=== PATIENT | male | born 1955 | race Caucasian/White ===

== ENCOUNTER 2016-10-25 06:26 | Emergency (ER) | payer OTHER ==
[2016-10-25] MEDS ORDERED: IPRATROPIUM/ALBUTEROL (0.5MG/3MG) NEB INH ONE (06:49)
[2016-10-25] MEDS ORDERED: METHYLPREDNISOLONE PF 125MG/VIAL IVP ONE (07:09)
[2016-10-25] MEDS ORDERED: ALBUTEROL SULFATE (0.083%) 2.5 MG/3 ML NEB INH ONE (07:12)
[2016-10-25] MEDS ORDERED: 0.9 % SODIUM CHLORIDE 1000ML 1,000 ML IV ONE (07:15)
--- NOTE | 2016-10-25 07:22 | Emergency Department Record ---
History of Present Illness - General Chief Complaint: Shortness of breath Stated Complaint: COUGH Time Seen by Provider: 10/25/16 07:11 Mode of Arrival: Ambulatory - History of Present Illness Initial Comments: wheezing and cough for the last week and recently seen Dr. Reynoso and romel dhillon and he has been using his rescue inhaler and it is only helping for a short time. Dry cough and slight sore throat. History of allergic asthma and he stopped smoking in 1993. No chest pain and no abd pain and no leg pain. Onset/Timin -: Week(s) Improves With: Bronchodilators, Medication, Upright position Worsens With: Inspiration, Lying flat Known History Of: Asthma Context: Other Associated Symptoms: Denies other symptoms Treatments Prior to Arrival: Other Treatment Prior to Arrival Comment:: stiloto - Related Data Home Oxygen Therapy: No Home Medications Medication Instructions Recorded Confirmed Last Taken Albuterol Sulfate [Ventolin Hfa] 1 - 2 puff IH .EVERY 4-6 HOURS PRN 10/25/1610/24/16 Ezetimibe [Zetia] 10 mg PO ASDIR 10/25/16 10/25/16 10/24/16 Fenofibrate,Micronized 108 mg PO DAILY 10/25/16 10/25/16 10/24/16 [Fenofibrate] Montelukast Sodium [Montelukast 10 mg PO QHS 10/25/16 10/25/16 10/24/16 Sodium] Previous Rx's Medication Instructions Recorded Azithromycin [Zithromax] 250 mg PO DAILY #6 tablet 10/25/16 Prednisone [Prednisone 10Mg] 10 mg PO ASDIR #30 tab 10/25/16 Allergies Allergy/AdvReac Type Severity Reaction Status Date / Time Penicillins AdvReac HYPERSENSIT Verified 10/25/16 06:31 IVITY Travel Screening - Travel/Exposure Within Last 30 Days Have you traveled within the last 30 days?: No - Travel Symptoms Symptom Screening: None Review of Systems Reviewed: No additional complaints except as noted below Constitutional: Reports: As per HPI. Denies: Chills, Fever, Malaise, Night sweats, Weakness, Weight change Eyes: Reports: As per HPI. Denies: Eye discharge, Eye pain, Photophobia, Vision change ENT: Reports: As per HPI. Denies: Congestion, Dental pain, Ear pain, Epistaxis , Hearing loss, Throat pain Respiratory: Reports: As per HPI, Cough, Dyspnea, Wheezes. Denies: Hemoptysis, Stridor Cardiovascular: Reports: As per HPI. Denies: Arrhythmia, Chest pain, Dyspnea on exertion, Edema, Murmurs, Orthopnea, Palpitations, Paroxysmal nocturnal dyspnea, Rheumatic Fever, Syncope Endocrine: Reports: As per HPI. Denies: Fatigue, Heat or cold intolerance, Polydipsia, Polyuria Gastrointestinal: Reports: As per HPI. Denies: Abdominal pain, Constipation, Diarrhea, Hematemesis, Hematochezia, Melena, Nausea, Vomiting Genitourinary: Reports: As per HPI. Denies: Dysuria, Frequency, Hematuria, Incontinence, Retention, Testicular pain, Testicular mass, Urgency Musculoskeletal: Reports: As per HPI. Denies: Arthralgia, Back pain, Gout, Joint swelling, Myalgia, Neck pain Skin: Reports: As per HPI. Denies: Bruising, Change in color, Change in hair/ nails, Lesions, Pruritus, Rash Neurological: Reports: As per HPI. Denies: Abnormal gait, Confusion, Headache, Numbness, Paresthesias, Seizure, Tingling, Tremors, Vertigo, Weakness Psychiatric: Reports: As per HPI. Denies: Anxiety, Auditory hallucinations, Depression, Homicidal thoughts, Suicidal thoughts, Visual hallucinations Hematological/Lymphatic: Reports: As per HPI. Denies: Anemia, Blood Clots, Easy bleeding, Easy bruising, Swollen glands Past Medical History - SOCIAL HISTORY Smoking Status: Former smoker Alcohol Use: None Drug Use: None - RESPIRATORY Hx Respiratory Disorders: Yes Hx Asthma: Yes - CARDIOVASCULAR Hx Cardio Disorders: No - NEURO Hx Neuro Disorders: No - GI Hx GI Disorders: Yes Hx GI Bleed: Yes ("weak lining" in stomach as a child) - Hx Genitourinary Disorders: No - ENDOCRINE Hx Endocrine Disorders: No - MUSCULOSKELETAL Hx Musculoskeletal Disorders: No - PSYCH Hx Psych Problems: No - HEMATOLOGY/ONCOLOGY Hx Hematology/Oncology Disorders: No Family Medical History Any Significant Family History?: Yes Hx Cancer: Mother Hx Heart Disease: Father Hx Resp Disorders: Brother/Sister, Grandparents *Resp Comment: sister-asthma, PGF-emphysema Physical Exam - General General Appearance: Alert, Oriented x3, Cooperative, No acute distress - Head Head exam: Normal inspection - Eye Eye exam: Normal appearance, PERRL Pupils: Normal accommodation - ENT ENT exam: Normal exam, Mucous membranes moist, Normal external ear exam, Normal orophraynx, TM's normal bilaterally Ear exam: Normal external inspection. negative: External canal tenderness Nasal Exam: Normal inspection. negative: Discharge, Sinus tenderness Mouth exam: Normal external inspection, Tongue normal Teeth exam: Normal inspection. negative: Dental caries Throat exam: Normal inspection. negative: Tonsillar erythema, Tonsillar exudate - Neck Neck exam: Normal inspection, Full ROM. negative: Tenderness - Respiratory Respiratory exam: Normal lung sounds bilaterally. negative: Respiratory distress - Cardiovascular Cardiovascular Exam: Regular rate, Normal rhythm, Normal heart sounds - GI/Abdominal GI/Abdominal exam: Soft, Normal bowel sounds. negative: Tenderness - Rectal Rectal exam: Deferred - exam: Deferred - Extremities Extremities exam: Normal inspection, Full ROM, Normal capillary refill. negative: Tenderness - Back Back exam: Reports: Normal inspection, Full ROM. Denies: Muscle spasm, Rash noted, Tenderness - Neurological Neurological exam: Alert, Normal gait, Oriented X3, Reflexes normal - Psychiatric Psychiatric exam: Normal affect, Normal mood - Skin Skin exam: Dry, Intact, Normal color, Warm Course Vital Signs 10/25/16 10/25/16 06:37 06:52 Temperature 98.1 F Pulse Rate 68 Pulse Rate [ 80 Pulse Ox Probe] Respiratory 20 15 Rate Blood Pressure 160/101 [Left Arm] Pulse Ox 96 99 Medical Decision Making - Data Complexity MDM Data: Labs Ordered and/or Reviewed, X-Ray Ordered and/or Reviewed (No infiltrate seen) - Lab Data Result diagrams: 10/25/16 07:05 10/25/16 07:05 Disposition Clinical Impression: Asthma attack, Bronchitis Disposition: Home, Self-Care Condition: (1) Good Instructions: Acute Bronchitis (ED) Additional Instructions: Use albuterol inhaler every 4 hours 2 puffs fluids follow up with Dr. James in 2 to 7 days sooner if worse continue his inhaler Stiolto 2 puffs daily Prescriptions: Azithromycin [Zithromax] 250 mg PO DAILY #6 tablet Prednisone [Prednisone 10Mg] 10 mg PO ASDIR #30 tab Forms: Patient Portal Access Time of Disposition: 08:39
[2016-10-25 07:25] LABS: HEMOGLOBIN 14.8 gm/dl (14.0-18.0); MEAN CELL VOLUME 87.5 fl (81-97); MEAN CORPUSCULAR HEMOGLOBIN 30.8 pg (27-33); MEAN CORPUSCULAR HGB CONC 35.2 g/dl (32-36); MEAN PLATELET VOLUME 10.3 fl (7.4-10.4); PLATELET COUNT 279 K/uL (130-400); RED CELL DISTRIBUTION WIDTH 13.3 % (11.5-14.5); WHITE BLOOD COUNT W/O DIFF 9.2 K/uL (4.2-12.2)
[2016-10-25 07:32] LABS: CREATININE 1.4 mg/dL (0.66-1.25)
[2016-10-25] MEDS ORDERED: AZITHROMYCIN 500 MG TABLET PO ONE (08:41)
[2016-10-25] MEDS ORDERED: AZITHROMYCIN 500 MG TABLET PO SCH (10:00)
--- NOTE | 2016-10-25 23:08 | RADIOLOGY REPORT ---
EXAM: CHEST 2 VIEWS HISTORY: PROGRESSIVE NONPRODUCTIVE COUGH. DIFFICULTY BREATHING FOR TWO WEEKS. HISTORY OF ASTHMA. COMPARISON: Chest x-ray 09/17/14. TECHNIQUE: Two-view chest. FINDINGS: Lungs are clear. Cardiac silhouette, diaphragm, and osseous structures are unremarkable for age. IMPRESSION: NEGATIVE CHEST. JOB NUMBER: [id number] MTDD
== END 2016-10-25 09:16 | disposition home or self-care (01) ==
LOC: ER 06:26
DX: J45.901 Unspecified asthma with (acute) exacerbation (principal); J20.9 Acute bronchitis, unspecified; Z87.891 Personal history of nicotine dependence
CPT/HCPCS: 71020; 80048; 85027; 94640; 96374; 99284; J2930; J7613

== ENCOUNTER 2017-10-22 11:58 | Emergency (ER) | payer OTHER ==
[2017-10-22] MEDS ORDERED: Diph,Pert(Acell),Tet Vac 0.5 ML SYR IM ONE (12:04)
--- NOTE | 2017-10-22 12:07 | Emergency Department Record ---
History of Present Illness - General Chief Complaint: Laceration(s) Stated Complaint: LACERATION LT ARM Time Seen by Provider: 10/22/17 12:03 Source: Patient Mode of Arrival: Ambulatory Limitations: No limitations - History of Present Illness Initial Commments: 62 yo male presents with a left forearm laceration. He was working with aluminium and a piece hit his left arm. No weakness, numbness, tingling. His tetanus status is unknown at this time. Place: Home Context: Accidental, Sharp object use Associated Symptoms: None Treatments Prior to Arrival: Bandage - Regla Coma Scale Eye Response: (4) Open spontaneously Motor Response: (6) Obeys commands Verbal Response: (5) Oriented [place] Total: 15 - Related Data Home Medications Medication Instructions Recorded Confirmed Last Taken Fenofibrate 50 mg PO BID 10/22/17 10/22/17 Unknown Fluticasone/Vilanterol [Breo 1 each IH DAILY 10/22/17 10/22/17 Unknown Ellipta 200-25 Mcg INH] Montelukast Sodium [Singulair] 10 mg PO DAILY 10/22/17 10/22/17 Unknown Triamcinolone Acetonide [Nasacort] 1 spray NS DAILY 10/22/17 10/22/17 Unknown Umeclidinium [place] [Incruse 62.5 mcg IH DAILY 10/22/17 10/22/17 Unknown Ellipta] Allergies Allergy/AdvReac Type Severity Reaction Status Date / Time Penicillins AdvReac HYPERSENSIT Verified 10/22/17 12:01 IVITY Review of Systems Constitutional: Denies: Chills, Fever, Weakness Eyes: Denies: Eye discharge ENT: Denies: Congestion, Throat pain Respiratory: Denies: Cough Cardiovascular: Denies: Chest pain, Syncope Endocrine: Denies: Fatigue Gastrointestinal: Denies: Abdominal pain, Diarrhea, Nausea, Vomiting Genitourinary: Denies: Dysuria, Frequency, Hematuria Musculoskeletal: Denies: Arthralgia, Back pain, Joint swelling, Myalgia Skin: Reports: Other. Denies: Bruising, Change in color, Rash Neurological: Denies: Headache, Numbness, Tingling, Weakness Psychiatric: Denies: Anxiety Hematological/Lymphatic: Denies: Easy bleeding, Easy bruising Past Medical History - SOCIAL HISTORY Smoking Status: Former smoker Drug Use: None - RESPIRATORY Hx Respiratory Disorders: Yes Hx Asthma: Yes - CARDIOVASCULAR Hx Cardio Disorders: No - NEURO Hx Neuro Disorders: No - GI Hx GI Disorders: Yes Hx GI Bleed: Yes ("weak lining" in stomach as a child) - Hx Genitourinary Disorders: No - ENDOCRINE Hx Endocrine Disorders: No - MUSCULOSKELETAL Hx Musculoskeletal Disorders: No - PSYCH Hx Psych Problems: No - HEMATOLOGY/ONCOLOGY Hx Hematology/Oncology Disorders: No Family Medical History Hx Cancer: Mother Hx Heart Disease: Father Hx Resp Disorders: Brother/Sister, Grandparents *Resp Comment: sister-asthma, PGF-emphysema Physical Exam - General General Appearance: Alert Limitations: No limitations - Head Head exam: Atraumatic - Eye Eye exam: Normal appearance. negative: Conjunctival injection, Scleral icterus - ENT ENT exam: Normal exam Ear exam: Normal external inspection Nasal Exam: Normal inspection Mouth exam: Normal external inspection - Neck Neck exam: Normal inspection - Cardiovascular Peripheral Pulses: 2+: Radial (L) - Extremities Extremities exam: negative: Normal inspection (3cm laceration, clean, linear) Image of Full Body: 1 - 3cm lnear laceration, clean, no FB - Neurological Neurological exam: Alert, Oriented X3. negative: Motor sensory deficit - Psychiatric Psychiatric exam: Normal affect, Normal mood - Skin Type of lesion: Laceration Course - Reevaluation(s) Reevaluation #1: 10/22/17 12:05 Procedure: 4cm Forearm Laceration Betadine Prep Copious NS irrigation Lidocaine 1% with Epi 3ml Prolene Suture 6 Sutures placed We discussed home care and reasons to return to the ED Suture removal in 8 days. 10/22/17 12:28 Disposition Disposition: Discharge Clinical Impression: Laceration Disposition: Home, Self-Care Condition: (1) Good Instructions: Laceration (ED) Additional Instructions: Suture removal in 10 days Return sooner if you have fever, pain, pus, or any new concerns Keep the area dry and clean. Forms: Patient Portal Access Time of Disposition: 12:15 Quality - Quality Measures Quality Measures: N/A - Blood Pressure Screening Does Patient Have Any of the Following: No Blood Pressure Classification: Pre-Hypertensive BP Reading Systolic Measurement: 120 Diastolic Measurement: 79 Screening for High Blood Pressure: < Pre-Hypertensive BP, F/U Documented > [ G8950] Pre-Hypertensive Follow-up Interventions: Referral to alternative/primary care provider.
== END 2017-10-22 13:21 | disposition home or self-care (01) ==
LOC: ER 11:58
DX: S51.812A Laceration without foreign body of left forearm, initial encounter (principal); W45.8XXA Other foreign body or object entering through skin, initial encounter; Y92.009 Unspecified place in unspecified non-institutional (private) residence as the place of occurrence of the external cause; Z87.891 Personal history of nicotine dependence
CPT/HCPCS: 12002; 90715; 96372; 99283

== ENCOUNTER 2017-11-01 17:13 | Emergency (ER) | payer OTHER ==
--- NOTE | 2017-11-01 17:31 | Emergency Department Record ---
History of Present Illness - General Chief Complaint: Suture removal Stated Complaint: REMOVE STITICHES Time Seen by Provider: 11/01/17 17:28 Source: Patient Mode of arrival: Ambulatory Limitations: No limitations - History of Present Illness Initial Comments: 62 yo male presents for a wound recheck and suture removal. He states he has no complaints since sutures were placed for a left fore arm laceration. No redness or drainage. No pus. MD Complaint: Suture/staple removal, Wound re-check -: Week(s) Initial Visit For: Laceration Returns Today for: Staple/stitch removal, Wound recheck Symptoms Since Prior Visit: No new symptoms Associated Symptoms: None Treatments Prior to Arrival: Other - Related Data Allergies Allergy/AdvReac Type Severity Reaction Status Date / Time Penicillins AdvReac HYPERSENSIT Verified 11/01/17 17:27 IVITY Review of Systems Constitutional: Denies: Chills, Fever, Malaise, Weakness Eyes: Denies: Eye discharge ENT: Denies: Congestion Respiratory: Denies: Cough Skin: Denies: Bruising, Change in color, Rash Neurological: Denies: Numbness, Tingling Hematological/Lymphatic: Denies: Easy bleeding, Easy bruising Past Medical History - SOCIAL HISTORY Smoking Status: Former smoker Drug Use: None - RESPIRATORY Hx Respiratory Disorders: Yes Hx Asthma: Yes - CARDIOVASCULAR Hx Cardio Disorders: No - NEURO Hx Neuro Disorders: No - GI Hx GI Disorders: Yes Hx GI Bleed: Yes ("weak lining" in stomach as a child) - Hx Genitourinary Disorders: No - ENDOCRINE Hx Endocrine Disorders: No - MUSCULOSKELETAL Hx Musculoskeletal Disorders: No - PSYCH Hx Psych Problems: No - HEMATOLOGY/ONCOLOGY Hx Hematology/Oncology Disorders: No Family Medical History Hx Cancer: Mother Hx Heart Disease: Father Hx Resp Disorders: Brother/Sister, Grandparents *Resp Comment: sister-asthma, PGF-emphysema Physical Exam - General General Appearance: Alert, Oriented x3, Cooperative, No acute distress Limitations: No limitations - Head Head exam: Atraumatic, Normal inspection - Eye Eye exam: Normal appearance - ENT ENT exam: Normal exam - Neck Neck exam: Normal inspection - Extremities Extremities exam: Normal inspection, Full ROM, Normal capillary refill, Other ( healing forearm laceration without signs of infection). negative: Tenderness - Neurological Neurological exam: Alert, Oriented X3 - Psychiatric Psychiatric exam: Normal affect, Normal mood. negative: Agitated, Anxious - Skin Skin exam: Dry, Intact, Normal color, Warm Course - Reevaluation(s) Reevaluation #1: The sutures were removed without any difficulty or complication 11/01/17 17:30 Disposition Disposition: Discharge Clinical Impression: Visit for suture removal Disposition: Home, Self-Care Condition: (1) Good Instructions: Stitches Removal (ED) Additional Instructions: Return if you have any concerns about the ongoing healing of your forearm laceration Forms: Patient Portal Access Time of Disposition: 17:31 Quality - Quality Measures Quality Measures: N/A - Blood Pressure Screening Does Patient Have Any of the Following: No Blood Pressure Classification: Pre-Hypertensive BP Reading Systolic Measurement: 147 Diastolic Measurement: 89 Screening for High Blood Pressure: < Pre-Hypertensive BP, F/U Documented > [ G8950] Pre-Hypertensive Follow-up Interventions: Referral to alternative/primary care provider.
== END 2017-11-01 17:58 | disposition home or self-care (01) ==
LOC: ER 17:13
DX: Z48.02 Encounter for removal of sutures (principal)

== ENCOUNTER 2018-02-06 09:49 | Emergency (ER) | payer OTHER ==
[2018-02-06] MEDS ORDERED: ASPIRIN 81 MG CHEWABLE TABLET PO ONE (09:57)
--- NOTE | 2018-02-06 10:15 | Emergency Department Record ---
History of Present Illness - General Chief Complaint: Dizziness Stated Complaint: LIGHT HEAD/DIZZY Time Seen by Provider: 02/06/18 09:52 Source: Patient, RN notes reviewed Mode of Arrival: EMS - History of Present Illness Initial Comments: patient was driving at 8:45am and had dizzy episode that last couple of minutes like his balance was off and happened a second time and he called EMS and transported to the ED. No chest pain or dyspnea and he has sinus congestion. balance was off and he felt vertiginous and almost vomited. Patient had an episode of this when he was on the heart monitor and no changes on his rhytm strip. Complaint: Dizziness Onset/Timin -: Hour(s) Timing: Gradual onset Description: Lightheadedness, Near-syncope History of Same: No History of Trauma: No Improves With: Nothing Worsens With: Nothing - Regla Coma Scale Eye Response: (4) Open spontaneously Motor Response: (6) Obeys commands Verbal Response: (5) Oriented Regla Total: 15 - Symptoms of Stroke Onset of Symptoms Date: 02/06/18 Onset of Symptoms Time: 06:30 Symptom Onset Unknown: Yes - Related Data Home Medications Medication Instructions Recorded Confirmed Last Taken Ascorbic Acid [Vitamin C] 500 mg PO DAILY 02/06/18 02/06/18 1 Day Ago ~02/05/18 Aspirin [Aspirin EC] 81 mg PO DAILY 02/06/18 02/06/18 1 Day Ago ~02/05/18 Cholecalciferol (Vitamin D3) 2,000 unit PO DAILY 02/06/18 02/06/18 1 Day Ago [Vitamin D3] ~02/05/18 Ezetimibe [Zetia] 10 mg PO DAILY 02/06/18 02/06/18 1 Day Ago ~02/05/18 Magnesium Oxide [Magnesium] 250 mg PO DAILY 02/06/18 02/06/18 1 Day Ago ~02/05/18 Ubidecarenone/Vit E Acet [Co Q-10 1 each PO DAILY 02/06/18 02/06/18 1 Day Ago 100 mg Softgel] ~02/05/18 Previous Rx's Medication Instructions Recorded Meclizine HCl [Antivert] 25 mg PO Q8H #30 tablet 02/06/18 Allergies Allergy/AdvReac Type Severity Reaction Status Date / Time Penicillins AdvReac HYPERSENSIT Verified 02/06/18 10:01 IVITY Travel Screening - Travel/Exposure Within Last 30 Days Have you traveled within the last 30 days?: No - Travel/Exposure Within Last Year Have you traveled outside the [place] in the last year?: No - Additonal Travel Details Have you been exposed to anyone with a communicable illness?: No - Travel Symptoms Symptom Screening: None Review of Systems Reviewed: No additional complaints except as noted below Constitutional: Reports: As per HPI. Denies: Chills, Fever, Malaise, Night sweats, Weakness, Weight change Eyes: Reports: As per HPI. Denies: Eye discharge, Eye pain, Photophobia, Vision change ENT: Reports: As per HPI. Denies: Congestion, Dental pain, Ear pain, Epistaxis , Hearing loss, Throat pain Respiratory: Reports: As per HPI. Denies: Cough, Dyspnea, Hemoptysis, Stridor, Wheezes Cardiovascular: Reports: As per HPI. Denies: Arrhythmia, Chest pain, Dyspnea on exertion, Edema, Murmurs, Orthopnea, Palpitations, Paroxysmal nocturnal dyspnea, Rheumatic Fever, Syncope Endocrine: Reports: As per HPI. Denies: Fatigue, Heat or cold intolerance, Polydipsia, Polyuria Gastrointestinal: Reports: As per HPI. Denies: Abdominal pain, Constipation, Diarrhea, Hematemesis, Hematochezia, Melena, Nausea, Vomiting Genitourinary: Reports: As per HPI. Denies: Dysuria, Frequency, Hematuria, Incontinence, Retention, Testicular pain, Testicular mass, Urgency Musculoskeletal: Reports: As per HPI. Denies: Arthralgia, Back pain, Gout, Joint swelling, Myalgia, Neck pain Skin: Reports: As per HPI. Denies: Bruising, Change in color, Change in hair/ nails, Lesions, Pruritus, Rash Neurological: Reports: As per HPI. Denies: Abnormal gait, Confusion, Headache, Numbness, Paresthesias, Seizure, Tingling, Tremors, Vertigo, Weakness Psychiatric: Reports: As per HPI. Denies: Anxiety, Auditory hallucinations, Depression, Homicidal thoughts, Suicidal thoughts, Visual hallucinations Hematological/Lymphatic: Reports: As per HPI. Denies: Anemia, Blood Clots, Easy bleeding, Easy bruising, Swollen glands Past Medical History - SOCIAL HISTORY Smoking Status: Former smoker Alcohol Use: Rare, Occasional Drug Use: None - RESPIRATORY Hx Respiratory Disorders: Yes Hx Asthma: Yes - CARDIOVASCULAR Hx Cardio Disorders: Yes Hx Hypertension: Yes Hx Irregular Heartbeat: Yes (not what type) Comment:: hyper cholesterol - NEURO Hx Neuro Disorders: No - GI Hx GI Disorders: Yes Hx GI Bleed: Yes ("weak lining" in stomach as a child) - Hx Genitourinary Disorders: No - ENDOCRINE Hx Endocrine Disorders: No - MUSCULOSKELETAL Hx Musculoskeletal Disorders: No - PSYCH Hx Psych Problems: No - HEMATOLOGY/ONCOLOGY Hx Hematology/Oncology Disorders: No Family Medical History Any Significant Family History?: Yes Hx Cancer: Mother Hx Heart Disease: Father Hx Resp Disorders: Brother/Sister, Grandparents *Resp Comment: sister-asthma, PGF-emphysema Physical Exam - General General Appearance: Alert, Oriented x3, Cooperative, No acute distress - Head Head exam: Normal inspection - Eye Eye exam: Normal appearance, PERRL Pupils: Normal accommodation - ENT ENT exam: Normal exam, Mucous membranes moist, Normal external ear exam, Normal orophraynx, TM's normal bilaterally Ear exam: Normal external inspection. negative: External canal tenderness Nasal Exam: Normal inspection. negative: Discharge, Sinus tenderness Mouth exam: Normal external inspection, Tongue normal Teeth exam: Normal inspection. negative: Dental caries Throat exam: Normal inspection. negative: Tonsillar erythema, Tonsillar exudate - Neck Neck exam: Normal inspection, Full ROM. negative: Tenderness - Respiratory Respiratory exam: Normal lung sounds bilaterally. negative: Respiratory distress - Cardiovascular Cardiovascular Exam: Regular rate, Normal rhythm, Normal heart sounds - GI/Abdominal GI/Abdominal exam: Soft, Normal bowel sounds. negative: Tenderness - Rectal Rectal exam: Deferred - exam: Deferred - Extremities Extremities exam: Normal inspection, Full ROM, Normal capillary refill. negative: Tenderness - Back Back exam: Reports: Normal inspection, Full ROM. Denies: Muscle spasm, Rash noted, Tenderness - Neurological Neurological exam: Alert, Normal gait, Oriented X3, Reflexes normal - Psychiatric Psychiatric exam: Normal affect, Normal mood - Skin Skin exam: Dry, Intact, Normal color, Warm Course Vital Signs 02/06/18 09:53 Temperature 98.2 F Pulse Rate 73 Respiratory 16 Rate Blood Pressure 178/120 Pulse Ox 98 Medical Decision Making - Data Complexity MDM Data: Labs Ordered and/or Reviewed, X-Ray Ordered and/or Reviewed (ct head neg and chest neg), EKG Ordered and/or Reviewed (NSR, no acute changes) - Lab Data Result diagrams: 02/06/18 10:08 02/06/18 10:08 Disposition Clinical Impression: BPV (benign positional vertigo) Qualifiers: Laterality: unspecified laterality Qualified Code(s): H81.10 - Benign paroxysmal vertigo, unspecified ear Disposition: Home, Self-Care Condition: (1) Good Instructions: Dizziness (ED), Benign Paroxysmal Positional Vertigo (ED) Additional Instructions: follow up with family Prescriptions: Meclizine HCl [Antivert] 25 mg PO Q8H #30 tablet Forms: Patient Portal Access Time of Disposition: 12:31 Quality - Quality Measures Quality Measures: N/A - Blood Pressure Screening Does Patient Have Any of the Following: No, Active Dx of HTN Blood Pressure Classification: Hypertensive Reading Systolic Measurement: 178 Diastolic Measurement: 120 Screening for High Blood Pressure: Patient Exclusion, Hx of HTN [G9744]
[2018-02-06 10:17] LABS: HEMATOCRIT 41.2 % (42.0-52.0); HEMOGLOBIN 13.9 gm/dl (14.0-18.0); MEAN CELL VOLUME 88.6 fl (81-97); MEAN CORPUSCULAR HGB CONC 33.7 g/dl (32-36); MEAN PLATELET VOLUME 9.1 fl (7.4-10.4); PLATELET COUNT 294 K/uL (130-400); RED BLOOD COUNT 4.65 M/uL (4.40-5.70); RED CELL DISTRIBUTION WIDTH 13.2 % (11.5-14.5); WHITE BLOOD COUNT W/O DIFF 6.6 K/uL (4.2-12.2)
[2018-02-06 10:25] LABS: MEAN CORPUSCULAR HEMOGLOBIN 29.8 pg (27-33)
[2018-02-06 10:33] LABS: BLOOD UREA NITROGEN 27 mg/dL (8-23); CREATININE 1.6 mg/dL (0.7-1.2); EST GLOMERULAR FILTRATION RATE 47 mL/min
[2018-02-06 10:35] LABS: GLUCOSE,RANDOM 112 mg/dL (74-109)
[2018-02-06 10:37] LABS: PARTIAL THROMBOPLASTIN TIME 25.6 SECONDS (24.5-39.1)
[2018-02-06] MEDS ORDERED: MECLIZINE 25 MG TABLET PO ONE (10:41)
== END 2018-02-06 12:50 | disposition home or self-care (01) ==
LOC: ER 09:49
DX: H81.10 Benign paroxysmal vertigo, unspecified ear (principal); I10 Essential (primary) hypertension; Z87.891 Personal history of nicotine dependence
CPT/HCPCS: 70450; 71046; 80048; 84484; 85027; 85379; 85730; 93005; 93010; 99284